=== PATIENT | female | born 1985 | race Caucasian/White ===

== ENCOUNTER 2017-01-15 10:07 | Emergency (ER) | payer OTHER ==
[2017-01-15 11:37] VITALS: BP 114/79
--- NOTE | 2017-01-15 12:14 | UC ---
Throat Pain/Nasal Robert HPI - HPI Summary HPI Summary: 31 y/o female presents to the urgent care c/o nasal congestion, with yellowish nasal discharge, sinus pain and STRINGER for the past 6 days. Nasal discharge is sometimes yellow and clear. Now she has sore throat and a dry cough due to postnasal drip and a STRINGER. Pt denies fever, SOB, chest pain, ear pain, dizziness. - History of Current Complaint Chief Complaint: UCRespiratory Stated Complaint: SINUS CONGESTION COUGH Time Seen by Provider: 01/15/17 12:02 Hx Obtained From: Patient Hx Last Menstrual Period: 1 1/2 months ago ?: No Onset/Duration: Gradual Onset, Lasting Days - 6 days, Still Present Severity: Moderate Pain Intensity: 5 - headache Pain Scale Used: 0-10 Numeric Cough: Nonproductive - dry Associated Signs & Symptoms: Positive: Dysphagia - mild sore throat, Sinus Discomfort, Nasal Discharge. Negative: Wheezing, Hoarseness, Fever Related History: Seasonal Allergies - Epiglottits Risk Factors Epiglottis Risk Factors: Negative - Allergies/Home Medications Allergies/Adverse Reactions: Allergies Allergy/AdvReac Type Severity Reaction Status Date / Time Penicillin G Allergy Intermediate Rash Verified 01/15/17 11:31 Home Medications: Home Medications Ibuprofen TAB* [Advil TAB*] 400 mg PO Q6H PRN 01/15/17 [History Confirmed ] Phenylephrine-Diphenhydramine- [Robitussin Cough & Cold D] 1 mis PO Q4H PRN [History Confirmed 01/15/17] PMH/Surg Hx/FS Hx/Imm Hx Previously Healthy: Yes - Pt denies PMHX - Surgical History Surgical History: Yes Surgery Procedure, Year, and Place: july 2011 endometriosis and removal of cyst on both ovaries, knee surgery 2000 - Family History Known Family History: Positive: Hypertension Family History: Hypothyrodism - Social History Occupation: Employed Full-time Lives: With Family Alcohol Use: Rare Substance Use Type: None Smoking Status (MU): Never Smoked Tobacco - Immunization History Most Recent Influenza Vaccination: not this season Review of Systems Constitutional: Negative Skin: Negative Eyes: Negative ENT: Sore Throat, Nasal Discharge, Sinus Congestion, Sinus Pain/Tenderness Respiratory: Cough - dry Cardiovascular: Negative Gastrointestinal: Negative Genitourinary: Negative Motor: Negative Neurovascular: Negative Musculoskeletal: Negative Neurological: Negative Psychological: Negative Is Patient Immunocompromised?: No All Other Systems Reviewed And Are Negative: Yes Physical Exam Triage Information Reviewed: Yes Vital Signs: Initial Vital Signs Temp 99.4 F 01/15/17 11:33 Pulse 86 01/15/17 11:33 Resp 16 01/15/17 11:33 BP 114/79 01/15/17 11:33 Pulse Ox 99 01/15/17 11:33 - Additional Comments General: Well developed, well-nourished female patient with NAD. Head and face: Normocephalic and atraumatic, Positive tenderness over the frontal and maxillary sinuses on percussion Eyes: PERRLA, EOMI x 2. Normal conjunctiva. No eye discharge. ENT: Ears and TM with normal limits. Nose: with yellowish discharge and erythematous and edematous nasal mucosa. Pharynx with mild erythema, no exudate. Neck: Supple, no JVD, no carotid bruits and no lymphadenopathy. Lungs: clear, no rales, no rhonchi, no wheezes. CVS: RRR, S1 and S2 present no murmurs or gallops appreciated. Abdomen: soft nontender with positive bowel sounds. Extremities: no edema noted. Neuro: WNL. Throat Pain/Nasal Course/Dx - Course Course Of Treatment: 31 y/o female presents to the urgent care c/o nasal congestion, with yellowish nasal discharge, sinus pain and STRINGER for the past 6 days. Nasal discharge is sometimes yellow and clear. Now she has sore throat and a dry cough due to postnasal drip and a STRINGER. Pt denies fever, SOB, chest pain, ear pain, dizziness.Hx obtained. Pt with acute sinusitis on examination. Pt Rx Claritine D- PO and and flonase nasal spray to alleviate symptoms. Discharge instructions explained to Pt. Advised to Return to the clinic or PCP if symptoms do not improve.Pt understood and agreed with plan of care. - Differential Dx/Diagnosis Differential Diagnosis/HQI/PQRI: Influenza, Laryngitis, Mononucleosis, Otitis Media, Pharyngitis, Sinusitis, Tonsillitis, URI Provider Diagnoses: 1- Acute Sinusitis Discharge - Discharge Plan Condition: Stable Disposition: HOME Prescriptions: Fluticasone NASAL SPRAY 50MCG* [Flonase NASAL SPRAY 50MCG*] 2 spray BOTH NARES DAILY #1 btl Loratadine & Pseudoephedrine [Claritin-D 12 Hour] 1 tab PO BID #30 tab Patient Education Materials: Sinusitis (ED) Forms: *Work Release Referrals: Sudhir Glaser MD [Primary Care Provider] - If Needed Additional Instructions: 1- Please increase fluid intake and rest. 2-Use Flonase as directed to help drain fluid. Also buy saline drops to clear sinuses 3-Take Sudafed or Claritine PO to alleviates sinus congestion 4-Return to the clinic or PCP if symptoms do not improve for further management and treatment
== END 2017-01-15 12:28 | disposition home or self-care (01) ==
LOC: UCCORT 10:07
DX: J01.90 Acute sinusitis, unspecified (principal); Z88.0 Allergy status to penicillin; Z79.891 Long term (current) use of opiate analgesic
CPT/HCPCS: 99212; G0463